=== PATIENT | female | born 1980 | race African-American/Black ===

== ENCOUNTER 2021-04-15 16:48 | Emergency (ER) | payer OTHER ==
[2021-04-15 17:13] VITALS: BMI 45.1
[2021-04-15] MEDS ORDERED: NAPROXEN 375 MG TABLET PO ONE (17:44)
[2021-04-15] MEDS ORDERED: CIPROFLOXACIN 500 MG TABLET (RESTRICTED TO ID) PO ONE (17:45)
[2021-04-15] MEDS ORDERED: NEOMYCIN/POLYMYXN/HC OTIC SOLUTION 10 ML BOTTLE AD ONE (18:00)
[2021-04-15] MEDS ORDERED: SODIUM CHLORIDE 0.9% 500 ML INFUS.BAG IV ONE (18:01)
[2021-04-15] MEDS ORDERED: NAPROXEN 375 MG TABLET ONE (18:07)
[2021-04-15] MEDS ORDERED: CIPROFLOXACIN 250 MG TABLET (RESTRICTED TO ID) PO ONE (18:07)
[2021-04-15] MEDS ORDERED: NEOMYCIN/POLYMYXN/HC OTIC SOLUTION 10 ML BOTTLE ONE (18:10)
[2021-04-15 18:16] VITALS: BP 150/106; PULSE 118; TEMP 100.3
== END 2021-04-15 18:27 | disposition left against medical advice (07) ==
LOC: FER 16:48
DX: H60.503 Unspecified acute noninfective otitis externa, bilateral (principal); E11.69 Type 2 diabetes mellitus with other specified complication
CPT/HCPCS: 82962; 99283-25